=== PATIENT | male | born 1975 | race Caucasian/White ===

== ENCOUNTER 2017-07-27 07:52 | Inpatient (IN) | payer BC, OTHER ==
[~2017-07-27] VITALS: Ht 182.9 cm; Wt 99.8 kg
[2017-07-27] MEDS ORDERED: LORAZEPAM 1 MG TABLET PO PRN (17:45)
[2017-07-27] MEDS ORDERED: MIRALAX 17 GM POWD.PACK PO PRN (17:45)
[2017-07-27] MEDS ORDERED: MAG HYDROX/AL HYDROX/SIMETH 30 ML LIQUID UDC PO PRN (17:45)
[2017-07-27] MEDS ORDERED: LORAZEPAM 2 MG/1 ML VIAL IM PRN (17:45)
[2017-07-27] MEDS ORDERED: ONDANSETRON 4 MG/2 ML VIAL IM PRN (17:45)
[2017-07-27] MEDS ORDERED: LOPERAMIDE HCL 2 MG CAPSULE PO PRN ×2 (17:45)
[2017-07-27] MEDS ORDERED: CLONIDINE HCL 0.1 MG TABLET PO PRN (17:45)
[2017-07-27] MEDS ORDERED: DICYCLOMINE HCL 20 MG TABLET PO PRN (17:45)
[2017-07-27] MEDS ORDERED: MAGNESIUM HYDROXIDE 30 ML LIQUID UDC PO PRN (17:45)
[2017-07-27] MEDS ORDERED: ACETAMINOPHEN 325 MG TABLET PO PRN (17:45)
--- NOTE | 2017-07-27 18:00 | NUR ---
INTAKE ASSESSMENT Patient is a 41 year old male, seen at intake, AAOx4, admitted for ETOH dependence. Patient reported allergic to PCN per patient he gets hives as allergic reaction. Patient is ambulatory with steady gait. Vital signs taken and as follows: BP: 134/86, P: 91, RR: 17, O2: 95%, TEMP: 98.4, PAIN: 0. Discussed with patient the admission policies of the unit.Patient denies any history of seizure. Will continue with admission upon pt's arrival on the unit.
[2017-07-27 18:53] LABS: *AMPHETAMINE, URINE NEGATIVE (NEGATIVE); *BARBITURATE, URINE NEGATIVE (NEGATIVE); *CANNABINOID, URINE POSITIVE (NEGATIVE); *COCCAINE, URINE NEGATIVE (NEGATIVE); *OPIATE, URINE NEGATIVE (NEGATIVE); *PHENCYCLIDINE SCREEN,URINE NEGATIVE (NEGATIVE)
[2017-07-27 19:26] LABS: BASOPHILS # (AUTO) 0.1 K/uL (0.0-8.0); EOSINOPHILS % (AUTO) 0.3 % (0.0-7.0); HEMOGLOBIN 15.4 g/dL (12.5-16.3); LYMPHOCYTES # (AUTO) 2.6 K/uL (20.0-40.0); MONOCYTES # (AUTO) 0.5 K/uL (2.0-10.0); PLATELET COUNT (AUTO) 304 K/uL (152-348); WHITE BLOOD COUNT (AUTO) 7.1 K/uL (3.6-10.2)
[2017-07-27 19:35] LABS: BILIRUBIN,TOTAL 0.4 mg/dL (0.2-1.0); CREATININE 0.9 mg/dL (0.6-1.3); MAGNESIUM 1.7 mg/dL (1.8-2.4); POTASSIUM 3.2 mmol/L (3.5-5.1); TOTAL PROTEIN, SERUM 7.5 g/dL (6.4-8.2)
[2017-07-27 19:42] LABS: BASOPHILS % (AUTO) 1.2 % (0.0-2.0); HEMATOCRIT 43.6 % (36.7-47.1); LYMPHOCYTES % (AUTO) 36.9 % (20.5-51.5); MEAN CORPUSCULAR HEMOGLOBIN 34.4 uug (23.8-33.4); MEAN CORPUSCULAR HGB CONC 35 g/dL (32.5-36.3); MEAN CORPUSCULAR VOLUME 97.6 fL (73.0-96.2); MONOCYTES % (AUTO) 7.4 % (0.0-11.0); NEUTROPHILS # (AUTO) 3.9 K/uL (1.8-8.9); NEUTROPHILS % (AUTO) 54.2 % (38.5-71.5); RED BLOOD CELL COUNT(AUTO) 4.47 MIL/uL (4.06-5.63)
[2017-07-27 20:00] VITALS: BP 121/83
[2017-07-27] MEDS ORDERED: THIAMINE HCL 200 MG/2 ML VIAL IM ONE (20:00)
[2017-07-27] MEDS ORDERED: POTASSIUM CHLORIDE 20 MEQ TAB.PRT.SR PO ONE (20:00)
[2017-07-27] MEDS ORDERED: MAGNESIUM OXIDE 400 MG TABLET PO ONE (20:00)
[2017-07-27] MEDS: ONDANSETRON ODT 4 MG TAB.RAPDIS SL PRN (20:07)
--- NOTE | 2017-07-27 20:07 | NUR ---
PRN ATIVAN/ZOFRAN Pt noted with anxiety, agitation, and nausea. CIWA:8. PRN Ativan and Zofran administered as ordered. Safety measures in place. Will continue to monitor effectiveness.
--- NOTE | 2017-07-27 20:08 | NUR ---
POTASSIUM/MAGNESIUM Pt noted with potassium 3.2, and Magnesium 1.7. MD with new order for K-Dur 40 MeQ, and Mag-Ox 400 mg administered as ordered. Will continue to monitor.
--- NOTE | 2017-07-27 20:30 | NUR ---
ADMISSION NOTE CIWA:8 Pt arrived ambulatory from [facility] Intake to the third floor accompanied by a SHOT CORE DRILL OPERATOR HELPER at 1815. Pt is a 41 year old male admitted on 06/13/17 for ETOH dependency. Pt is full code with allergy to PCN. Pt reports PMHx of depression, bipolar and anxiety. He denies having a PCP but reports he only takes TUMS at home and used to take home medications of [place], Lamictal, Marplan, and Dextromethorphan. He reports that he has not taken these medications in over 1 year. He reports his longest sobriety was for 3 years in 2009. His last detox was in 2007 at [facility] in [place], [place]. He describes his current use as: 1. ETOH (whiskey) 1/2 gallon daily for 6 months at this rate. Last dose: " few drinks" on 07/27/17 2. Marijuana (smoke) intermittently. He describes his withdrawal symptoms as " anxiety, tremors, nausea and vomiting." Upon assessment, pt is alert and oriented x4. Speech is clear and audible. Pt noted to be anxious and restless. Heart rate regular. Denies chest pain or SOB. PERRLA, breathing is even and unlabored, lung sounds clear. Abdomen is soft and non-distended. Bowel sounds present in all quadrants, last BM 07/27/17. Pt reports that BM is regular. Pt's skin is warm, dry and intact. Pt was seen and examined by Dr. Rubin. Pt oriented to room and unit. Safety measures in place. Will continue to monitor.
[2017-07-27] MEDS ORDERED: NICOTINE POLACRILEX 4 MG GUM-PK OF TEN BC PRN (21:45)
[2017-07-27] MEDS ORDERED: NICOTINE 14 MG/24HR PATCH TD PRN (21:45)
[2017-07-27] MEDS ORDERED: CALC300T4 PO (22:48)
[2017-07-28] VITALS: BP 106/72
[2017-07-28] MEDS: LORAZEPAM 1 MG TABLET PO PRN (00:21)
[2017-07-28] MEDS: diphenhydrAMINE 50 MG CAPSULE PO PRN (00:21)
--- NOTE | 2017-07-28 00:21 | NUR ---
PRN ATIVAN, BENADRYL Pt noted with sweats, increased anxiety, restlessness and insomnia. CIWA:12. PRN Ativan and Benadryl administered as ordered. Safety measures in place. Will monitor effectiveness.
--- NOTE | 2017-07-28 01:21 | NUR ---
PRN REASSESSMENT PRN medications effective. Pt lying in bed with eyes closed noted to be asleep. Respirations 16, breathing even and unlabored. Safety measures in place. Will monitor.
[2017-07-28 04:00] VITALS: BP 110/83
--- NOTE | 2017-07-28 07:15 | NUR ---
END OF SHIFT Pt is a 41 year old male admitted on 06/13/17 for ETOH dependency. Pt is full code with allergy to PCN. He received PRN Zofran, Ativan x2, and Benadryl. He is scheduled to start his 5 day Ativan taper today 07/27/17. He slept a total of 8hrs, Intake:1328mL, Void:x1, BM:0, CIWA: 12. Pt remains alert and oriented x4, breathing is even and unlabored. Safety measures in place. Endorsed to AM shift.
--- NOTE | 2017-07-28 07:16 | NUR ---
Start of Shift Notes: Received endorsement from night nurse. Patient is a 41 year old male admitted for ETOH dependence who will be starting his 5-day Ativan taper as ordered. He is allergic to PCN. FULL CODE. Regular diet. On fall and seizure precautions. He is alert and verbally responsive. Oriented x 4. Respirations even and unlabored. No SOB noted. Skin warm and dry to touch. Abdomen soft and non-distended. BS (+) in all 4 quadrants. No complains of N/V/D or constipation noted. Voids independently. Educated patient on his current plan of care for the day and his medication regimen. Encouraged oral fluid intake and encouraged group participation to learn new skills to prevent relapse. Will continue to monitor throughout the day.
[2017-07-28 08:00] VITALS: BP_SYST 132; BP_SYST 141; BP_DIAS 81; BP_DIAS 91
[2017-07-28] MEDS ORDERED: TUBERCULIN,PURIF.PROT.DERIV. 5 TU/0.1 ML TEST ID ONE (09:00)
[2017-07-28] MEDS: FOLIC ACID 1 MG TABLET PO SCH (09:07)
[2017-07-28] MEDS: MULTIVITAMINS,THERAPEUTIC TABLET PO SCH (09:07)
[2017-07-28] MEDS: THIAMINE HCL 100 MG TABLET PO SCH (09:07)
[2017-07-28] MEDS: ONDANSETRON ODT 4 MG TAB.RAPDIS SL PRN (09:08)
[2017-07-28] MEDS: LORAZEPAM 1 MG TABLET PO SCH ×4 (09:08→20:20)
--- NOTE | 2017-07-28 09:08 | NUR ---
Clonidine 0.1mg PO/Zofran 4 mg ODT given: Patient noted with blood pressure of 141/91, Pulse 91 at rest. Noted with gross tremors, sweating and anxious with complains of intermittent nausea. CIWA 10. Medicated patient with Clonidine 0.1mg PO and Zofran 4 mg ODT as ordered. Will monitor for effectiveness. Addendum: 07/28/17 at 1016 by ARGENIS ORTIZ LVN Error in charting. Patient's CIWA was a 17 not 10.
--- NOTE | 2017-07-28 09:30 | NUR ---
MD Communication: CIWA score Notified Dr. Rubin regarding patient's CIWA score of 17. Per MD, he will evaluate the patient and to continue with current plan of care at this time.
[2017-07-28] MEDS ORDERED: PNEUMOCOCCAL 23-VAL P-SAC VAC 0.5 ML VIAL IM ONE (10:00)
[2017-07-28] MEDS ORDERED: INFLUENZA VACCINE 2017-2018 0.5 ML DISP.SYRIN IM ONE (10:00)
--- NOTE | 2017-07-28 10:08 | NUR ---
Re-assessment: Clonidine and Zofran Patient noted with BP 132/81, 1 hour after Clonidine administration. Patient reports that he no longer feels nauseated and is able to tolerate PO intake at this time. PRN Clonidine and Zofran were effective in reducing nausea and BP.
[2017-07-28] MEDS: LITHIUM CARBONATE 300 MG CAPSULE PO SCH ×2 (10:34→20:21)
[2017-07-28] MEDS: ESCITALOPRAM OXALATE 10 MG TABLET PO SCH (10:34)
[2017-07-28 12:00] VITALS: BP 133/77
[2017-07-28 16:00] VITALS: BP 133/82
--- NOTE | 2017-07-28 19:12 | NUR ---
End of Shift Notes: Patient initiated his 5-day Ativan taper today as ordered. Patient tolerated well. No adverse reactions noted. VS monitored closely. BP in AM was 141/91. Medicated patient with Clonidine 0.1 mg PO as ordered with help after 1 hour. Withdrawal symptoms were closely monitored. Initial CIWA 17, patient presented with anxiety, agitation, gross tremors, nausea, and sweats. Denies S/I or H/I noted. No AV hallucinations noted. Patient was seen by Dr. Land (psych) today with orders noted and carried out. Last CIWA 9. Per patient, Ativan has been effective in reducing his withdrawal symptoms. Unable to participate in group and activities due to his withdrawal symptoms. Compliant with care and treatment. PNA/FLU/TB test administered today. All needs met and attended. Will continue to monitor closely.
--- NOTE | 2017-07-28 19:15 | NUR ---
START OF SHIFT Received 41 year old male patient admitted on 07/27/17 for ETOH and Marijuana dependency. Pt is full code with allergy to PCN. He reports a PMHx of anxiety, depression and bipolar. He reports drinking ETOH (whiskey) 1/2 gallon daily for 6 months. Last dose was a " few drinks" on 07/27/17. He is currently receiving a 5 day Ativan taper and tolerating well. Per endorsement, pt received PNA and Flu vaccine today. He also received PRN Clonidine and Zofran. Pt is alert and oriented x4, breathing is even and unlabored. Safety measures in place. Will continue to monitor.
[2017-07-28 20:01] VITALS: BP 130/83
[2017-07-28] MEDS: IBUPROFEN 400 MG TABLET PO PRN (20:21)
--- NOTE | 2017-07-28 20:21 | NUR ---
PRN MOTRIN Pt complains of back pain 11/10. PRN Motrin administered as ordered. Safety measures in place. Will continue to monitor.
--- NOTE | 2017-07-28 20:54 | NUR ---
PRN NICOTINE GUM Pt requesting nicotine gum. Educated patient on " chew and park" method of using gum. Pt verbalized understanding. Will continue to monitor.
--- NOTE | 2017-07-28 21:21 | NUR ---
PRN MOTRIN REASSESSMENT PRN medication effective. Pt reports decrease of back pain to 3/10. Will continue to monitor.
--- NOTE | 2017-07-28 21:54 | NUR ---
PRN REASSESSMENT Nicotine gum effective. Pt able to report decrease sense of cravings. Pt lying in bed watching TV. Safety measures in place. Will continue to monitor.
[2017-07-29] VITALS: BP 124/85
--- NOTE | 2017-07-29 00:13 | NUR ---
PRN ATIVAN/BENADRYL Pt complains of anxiety, agitation, diaphoresis, and insomnia. CIWA:13. PRN Ativan 2 mg and Benadryl administered as ordered. Safety measures in place. Will monitor effectiveness.
[2017-07-29] MEDS: LORAZEPAM 1 MG TABLET PO PRN (00:21)
[2017-07-29] MEDS: diphenhydrAMINE 50 MG CAPSULE PO PRN (00:21)
--- NOTE | 2017-07-29 01:13 | NUR ---
PRN REASSESSMENT PRN medications effective. Pt is lying in bed with eyes closed noted to be asleep. Breathing is even and unlabored, safety measures in place. Will continue to monitor.
[2017-07-29 04:00] VITALS: BP 115/80
--- NOTE | 2017-07-29 07:06 | NUR ---
END OF SHIFT Pt is in bed sleeping but is easily aroused to verbal stimuli. He continues on a 5 day Ativan taper and tolerating well. He received PRN Nicotine gum, and Motrin. At 0013 pt complained of diaphoresis, anxiety, agitation, insomnia and restlessness. He received PRN Ativan and Benadryl. He slept a total of 8 hrs, Intake: 1,000mL, Void: x2, BM:0, CIWA:13. Safety measures in place. Endorsed to AM shift.
[2017-07-29 08:00] VITALS: BP 134/85
[2017-07-29] MEDS: FOLIC ACID 1 MG TABLET PO SCH (08:37)
[2017-07-29] MEDS: LORAZEPAM 1 MG TABLET PO SCH ×3 (08:37→21:59)
[2017-07-29] MEDS: MULTIVITAMINS,THERAPEUTIC TABLET PO SCH (08:37)
[2017-07-29] MEDS: LITHIUM CARBONATE 300 MG CAPSULE PO SCH ×2 (08:37→21:59)
[2017-07-29] MEDS: THIAMINE HCL 100 MG TABLET PO SCH (08:37)
[2017-07-29] MEDS: ESCITALOPRAM OXALATE 10 MG TABLET PO SCH (08:37)
[2017-07-29 12:00] VITALS: BP 121/69
[2017-07-29 13:07] LABS: HEPATITIS B SURFACE AG Negative (Negative)
[2017-07-29 16:00] VITALS: BP 128/84
--- NOTE | 2017-07-29 19:09 | NUR ---
End of Shift Notes: Patient initiated his 5-day Ativan taper today as ordered. Patient tolerated well. No adverse reactions noted. VS monitored closely. No significant abnormalities noted. Withdrawal symptoms were closely monitored. Initial CIWA 12, patient presented with anxiety, agitation, gross tremors and sweats. Denies S/I or H/I noted. No AV hallucinations noted. Last CIWA 8. Per patient, Ativan has been effective in reducing his withdrawal symptoms. Unable to participate in group and activities due to his withdrawal symptoms. Compliant with care and treatment. PNA/FLU/TB test administered today. All needs met and attended. Will continue to monitor closely. Addendum: 07/29/17 at 1916 by ARGENIS ORTIZ LVN Error in charting. PNA/TB/FLU vaccine administered yesterday 07/28/2017.
[2017-07-29 20:00] VITALS: BP 118/68
--- NOTE | 2017-07-29 20:00 | NUR ---
Start of Shift Patient is admitted for ETOH dependence. Placed on a 5-day Ativan taper, started on 07/28/2017. Pt verbalized that his withdrawal symptoms are being controlled by the medications. Pt also verbalized that his anxiety for the future and risk for relapse is alleviated by group therapy sessions. Pt noted with gross tremors and anxiety. Pt is AAOx4, is ambulatory with steady gait and with no skin issues. Fall, universal, seizure and safety prec in place. Call light within reach. Latest CIWA=7. Will continue to monitor.
[2017-07-30] VITALS: BP 120/65
[2017-07-30 04:00] VITALS: BP 128/77
--- NOTE | 2017-07-30 07:12 | NUR ---
End of Shift Patient is admitted for ETOH dependence. Placed on a 5-day Ativan taper, started on 07/28/2017. Pt verbalized that his withdrawal symptoms are being controlled by the medications. Pt also verbalized that his anxiety for the future and risk for relapse is alleviated by group therapy sessions. Pt noted with gross tremors and anxiety. Pt is AAOx4, is ambulatory with steady gait and with no skin issues. Fall, universal, seizure and safety prec in place. Call light within reach. Latest CIWA=5, slept for 6 hours. Endorsed to AM shift nurse for continuity of care.
--- NOTE | 2017-07-30 07:13 | NUR ---
Start of Shift Notes: Received endorsement from night nurse. Patient is a 41 year old male admitted for ETOH dependence placed on a 5-day Ativan taper as ordered. He is allergic to PCN. FULL CODE. Regular diet. On fall and seizure precautions. He is alert and verbally responsive. Oriented x 4. Respirations even and unlabored. No SOB noted. Skin warm and dry to touch. Abdomen soft and non-distended. BS (+) in all 4 quadrants. No complains of N/V/D or constipation noted. Voids independently. Educated patient on his current plan of care for the day and his medication regimen. Encouraged oral fluid intake and encouraged group participation to learn new skills to prevent relapse. Will continue to monitor throughout the day.
[2017-07-30 08:00] VITALS: BP 122/66
[2017-07-30] MEDS: ESCITALOPRAM OXALATE 10 MG TABLET PO SCH (08:23)
[2017-07-30] MEDS: FOLIC ACID 1 MG TABLET PO SCH (08:23)
[2017-07-30] MEDS: LORAZEPAM 1 MG TABLET PO SCH ×2 (08:23→12:07)
[2017-07-30] MEDS: THIAMINE HCL 100 MG TABLET PO SCH (08:23)
[2017-07-30] MEDS: LITHIUM CARBONATE 300 MG CAPSULE PO SCH ×4 (08:23→16:19)
[2017-07-30] MEDS: MULTIVITAMINS,THERAPEUTIC TABLET PO SCH (08:23)
[2017-07-30] MEDS: IBUPROFEN 400 MG TABLET PO PRN (08:32)
--- NOTE | 2017-07-30 08:32 | NUR ---
Motrin 400 mg PO given: Patient noted with complain of 5/10 back pain. Non-pharmacological interventions provided but ineffective. Medicated patient with Motrin 400 mg Po as ordered. Will monitor for effectiveness.
[2017-07-30] MEDS ORDERED: QUETIAPINE FUMARATE 25 MG TABLET PO PRN (09:00)
--- NOTE | 2017-07-30 09:14 | NUR ---
Psych MD: New Orders Seen and examined by Dr. Land with new orders. Patient's [place] increased to 300 mg TID from BID. AM dose of med was given at 0823. Per , ok to hold dose at 0900 from new orders and to start with current orders at 1300.
--- NOTE | 2017-07-30 09:32 | NUR ---
Re-assessment: Motrin Per patient, PRN Motrin was effective in reducing back pain. PL 07/13.
[2017-07-30 12:00] VITALS: BP 140/89
[2017-07-30] MEDS: GABAPENTIN 300 MG CAPSULE PO SCH ×2 (14:00→20:58)
[2017-07-30 16:00] VITALS: BP 128/87
[2017-07-30] MEDS ORDERED: LORAZEPAM 1 MG TABLET PO SCH ×2 (17:00→21:00)
--- NOTE | 2017-07-30 19:04 | NUR ---
End of Shift Notes: Patient initiated his 5-day Ativan taper today as ordered. Patient tolerated well. No adverse reactions noted. VS monitored closely. No significant abnormalities noted. Withdrawal symptoms were closely monitored. Initial CIWA 7, patient presented with anxiety, agitation, gross tremors and sweats. Denies S/I or H/I noted. No AV hallucinations noted. PRN Motrin 400 mg PO given at 0832 with help after 1 hour. Last CIWA 3. Per patient, Ativan has been effective in reducing his withdrawal symptoms. Unable to participate in group and activities due to his withdrawal symptoms. Compliant with care and treatment. All needs met and attended. Will continue to monitor closely. Addendum: 07/30/17 at 1905 by ARGENIS ORTIZ LVN Error in charting, Patient initiated his 5-day Ativan taper on 07/28/2017.
[2017-07-30 20:00] VITALS: BP 138/92
--- NOTE | 2017-07-30 20:00 | NUR ---
Start of Shift Notes Received 41 year old male px admitted on 07/27/2017 for ETOH dependence placed on a 5-day Ativan taper as ordered. He is allergic to PCN. FULL CODE. Regular diet. On fall and seizure precautions. He is alert and Oriented x 4. During the rounds at 2000, px reported moderate anxiety. Respirations are even and unlabored. No SOB noted. Encouraged oral fluid intake. Bed on low position, side rails up x2, and call light within reach. We'll continue to monitor.
[2017-07-30] MEDS: CLONIDINE HCL 0.1 MG TABLET PO SCH (20:58)
[2017-07-30] MEDS ORDERED: GABAPENTIN 300 MG CAPSULE PO SCH (21:00)
[2017-07-31] VITALS: BP 128/85
[2017-07-31 04:00] VITALS: BP 121/79
--- NOTE | 2017-07-31 04:00 | NUR ---
CIWA deferred CIWA deferred at 0000 and 0400 due to the px is asleep, to assess if the px is awake per doctor's order. We'll continue to monitor.
--- NOTE | 2017-07-31 07:17 | NUR ---
Start of Shift Notes Received 41 year old male px admitted on 07/27/2017 for ETOH dependence placed on a 5-day Ativan taper as ordered. He is allergic to PCN. FULL CODE. Regular diet. On fall and seizure precautions. He is alert and Oriented x 4. During the rounds at 1999, px reported moderate anxiety. Respirations are even and unlabored. No SOB noted. Oral intake of 1L, voided 4x, No BM. Slept for 6 hours. Last CIWA 3. Encouraged oral fluid intake. Bed on low position, side rails up x2, and call light within reach. We'll continue to monitor. Addendum: 07/31/17 at 0718 by KEVIN TAVAREZ RN This is End of Shift Notes
--- NOTE | 2017-07-31 07:32 | NUR ---
BEGINNING OF SHIFT Patient endorsement report received from car shifter nurse, all pertinent information discussed. Patient is a 41 year old male with admitting Dx: ETOH dependence. Patient under close observation. Patient currently with ongoing 5 day ativan taper as ordered, and is scheduled to begin day 4 of taper. will monitor ciwa and vital signs closely. patient received no PRNs during shift. patient slept for 6 hours, and last ciwa score of: 3. Patient received awake, alert and oriented x4, educated regarding plan of care for the day and medication regimen, with good verbal understanding. safety measures in place. call light kept with in reach. all needs met and rendered, call light kept with in reach, will continue to monitor closely.
[2017-07-31 08:03] VITALS: BP 122/86
[2017-07-31] MEDS ORDERED: LORAZEPAM 1 MG TABLET PO SCH ×3 (09:00→21:00)
[2017-07-31] MEDS: FOLIC ACID 1 MG TABLET PO SCH (09:05)
[2017-07-31] MEDS: THIAMINE HCL 100 MG TABLET PO SCH (09:05)
[2017-07-31] MEDS: LITHIUM CARBONATE 300 MG CAPSULE PO SCH ×3 (09:05→16:40)
[2017-07-31] MEDS: GABAPENTIN 300 MG CAPSULE PO SCH ×3 (09:05→21:50)
[2017-07-31] MEDS: MULTIVITAMINS,THERAPEUTIC TABLET PO SCH (09:05)
[2017-07-31] MEDS: CLONIDINE HCL 0.1 MG TABLET PO SCH ×2 (09:06→21:51)
[2017-07-31] MEDS ORDERED: QUETIAPINE FUMARATE 25 MG TABLET PO PRN (09:15)
[2017-07-31] MEDS: QUETIAPINE FUMARATE 25 MG TABLET PO SCH ×3 (10:02→16:40)
[2017-07-31 13:54] VITALS: BP 133/81
[2017-07-31 17:51] VITALS: BP 134/85
--- NOTE | 2017-07-31 18:52 | NUR ---
END OF SHIFT Patient alert and oriented x4, vital signs were WNL during shift. Patient is compliant with therapeutic plan of care. Patient with admitting Dx: etoh dependence and continues on a 5 day ativan taper as ordered, currently on day 4 of taper. During shift patient presented with: anxiety and tremors that can be felt but not seen. Detox medication effective at reducing withdrawal symptoms. Received no PRN medications. 0900 CIWA: 3; 1300 CIWA: 3; 1700 CIWA: 2. Encouraged adequate PO fluid intake as tolerated. Encouraged patient to attend group therapies/sessions to learn new coping skills to prevent relapse, noted attending and participating, denies SI/HI. Noted with good appetite during shift. Safety measures in place, call light kept with in reach. Fall precautions observed at all times. Will continue to monitor. Patient endorsed to maintenance mechanic 2nd shift nurse, all pertinent information discussed.
[2017-07-31 20:00] VITALS: BP 117/70
[2017-08-01] VITALS: BP 108/68
[2017-08-01 04:00] VITALS: BP 105/68
--- NOTE | 2017-08-01 07:22 | NUR ---
End of Shift Notes 41 year old male px admitted on 07/27/2017 for ETOH dependence placed on a 5-day Ativan taper as ordered. He is allergic to PCN. FULL CODE. Regular diet. On fall and seizure precautions. He is alert and Oriented x 4. During the shift, px reported moderate anxiety. Respirations are even and unlabored. No SOB noted. Encouraged oral fluid intake. Oral intake of 1,200 ml, voided 2x, No BM. Slept for 8 hours. Bed on low position, side rails up x2, and call light within reach. We'll continue to monitor.
--- NOTE | 2017-08-01 07:30 | NUR ---
start of shift note: received pt from shiftman nurse, pt is in stable condition at this time, pt is in bed sleeping, pt is [facility]oh withdrawal/dependence. pt slept 8 hrs with a last ciwa of 2, will continue to monitor pt for any changes and continue to meet pts needs
[2017-08-01 09:00] VITALS: BP 128/84
[2017-08-01] MEDS: LORAZEPAM 1 MG TABLET PO SCH ×2 (09:32→20:30)
[2017-08-01] MEDS: MULTIVITAMINS,THERAPEUTIC TABLET PO SCH (09:33)
[2017-08-01] MEDS: QUETIAPINE FUMARATE 25 MG TABLET PO SCH ×2 (09:33→13:30)
[2017-08-01] MEDS: THIAMINE HCL 100 MG TABLET PO SCH (09:33)
[2017-08-01] MEDS: LITHIUM CARBONATE 300 MG CAPSULE PO SCH ×3 (09:33→17:08)
[2017-08-01] MEDS: FOLIC ACID 1 MG TABLET PO SCH (09:33)
[2017-08-01] MEDS: CLONIDINE HCL 0.1 MG TABLET PO SCH ×2 (09:33→20:30)
[2017-08-01] MEDS: GABAPENTIN 300 MG CAPSULE PO SCH ×3 (09:33→20:30)
[2017-08-01 13:00] VITALS: BP 131/84
[2017-08-01] MEDS ORDERED: QUETIAPINE FUMARATE 25 MG TABLET PO SCH (17:00)
[2017-08-01 17:18] VITALS: BP 123/82
--- NOTE | 2017-08-01 18:43 | NUR ---
START OF SHIFT NOTE: Patient is a 41 year old male admitted to [facility] on 07/27/2017 for medically supervised withdrawal from Alcohol and Marijuana., continue 5 Day Ativan Taper which tolerated well without ASE. Patient reports Allergy to PCN, is on Full Code, Regular diet, is on Fall and Seizures precautions. Patient denies a history of withdrawal-induced seizures. PMH: Anxiety, Depression, Bipolar Disorder. Patient is alert and oriented x4. Speech is clear and soft. CIWA 7: patient c/o anxiety, agitation, nervousness, restlessness, sweating, and nasal stuffiness. VSWNL. Patient denies SI/HI. Respirations unlabored and even. Skin is intact, warm and dry to touch. Encouraged to attend groups activities. All needs met. Safety measures on place. Call light within reach, bed in lowest position and locked, padded rails up bilaterally. Patient endorsed by day shift nurse. Report received.
--- NOTE | 2017-08-01 18:43 | NUR ---
end of shift note: pt is in stable condition no s/s of pain or discomfort, pt's seroquel was adjusted, per pt's request. pt tolerated taper medications well, pt is being medically detoxing from etoh, pt verbalized he feels great. pt attended all groups and activities throughout the shift. pt's last ciwa is 4 will endorse pt to shift production associate nurse.
[2017-08-01 20:00] VITALS: BP 116/78
[2017-08-01] MEDS: diphenhydrAMINE 50 MG CAPSULE PO PRN (20:39)
--- NOTE | 2017-08-01 20:39 | NUR ---
PRN BENADRYL 50 MG 1 CAP PO ADMINISTRATION Patient c/o insomnia. PRN Benadryl 50 mg 1 capsule PO for insomnia administrated with full glass of water as ordered. Patient tolerated well. All needs met. Safety measures on place. Call light within reach, bed in lowest position and locked, padded rails up bilaterally rails up bilaterally. Will continue to monitor closely
--- NOTE | 2017-08-01 21:39 | NUR ---
RE-ASSESSMENT Patient is sleeping. Respirations even and unlabored. RR 16. PRN Benadryl 50 mg 1 capsule PO administrated for insomnia @2038 was effective. All needs met. Safety measures on place. Call light within reach, bed in lowest position and lock, padded rails up bilaterally rails up bilaterally. Will continue to monitor closely.
[2017-08-02] VITALS: BP 122/75
[2017-08-02 04:00] VITALS: BP 112/76
--- NOTE | 2017-08-02 06:36 | NUR ---
END OF SHIFT NOTE: Endorsed patient is a 41 year old male admitted to [facility] on 07/27/2017 for medically supervised withdrawal from Alcohol and Marijuana, continue 5 Day Ativan Taper which tolerated well without ASE. Patient reports Allergy to PCN, is on Full Code, Regular diet, is on Fall and Seizures precautions. Patient denies a history of withdrawal-induced seizures. PMH: Anxiety, Depression, Bipolar Disorder. Patient is alert and oriented x4. Last CIWA 3 @0400. Patient presented with anxiety, agitation, nervousness, restlessness, barely sweating, tremors, that can be felt, and nasal stuffiness. CIWA taken when patient's awake during night. Last VS @0400: T: 98.1, BP: 112/76, HR: 78, RR:17, RA O2Sat: 99%, pain level: "0/10". Patient denies SI/HI. Respirations unlabored and even. Skin is intact, warm and dry to touch. PRN Benadryl 50 mg 1 capsule PO administrated for insomnia @2038 was effective. Patient slept 9 hours, intake 2,000 ml, voided x4. Encouraged fluids intake as tolerated. Encouraged to attend groups activities. Safety measures in place: Call Light in reach, bed low, and locked, padded side rails up bilaterally. Needs attended. Patient endorsed to day shift nurse, report given. Addendum: 08/02/17 at 0703 by SHAI DICKERSON RN [place] level is 0.39 mmol/L - Low
[2017-08-02 08:00] VITALS: BP 122/86
[2017-08-02] MEDS ORDERED: LORAZEPAM 1 MG TABLET PO SCH (09:00)
[2017-08-02] MEDS: GABAPENTIN 300 MG CAPSULE PO SCH ×3 (09:04→20:46)
[2017-08-02] MEDS: CLONIDINE HCL 0.1 MG TABLET PO SCH ×2 (09:04→20:46)
[2017-08-02] MEDS: QUETIAPINE FUMARATE 25 MG TABLET PO SCH ×2 (09:05→20:46)
[2017-08-02] MEDS: MULTIVITAMINS,THERAPEUTIC TABLET PO SCH (09:05)
[2017-08-02] MEDS: THIAMINE HCL 100 MG TABLET PO SCH (09:05)
[2017-08-02] MEDS: LITHIUM CARBONATE 300 MG CAPSULE PO SCH ×3 (09:05→17:17)
[2017-08-02] MEDS: FOLIC ACID 1 MG TABLET PO SCH (09:06)
[2017-08-02] MEDS ORDERED: CLONIDINE HCL 0.1 MG TABLET PO SCH (10:15)
[2017-08-02] MEDS ORDERED: HYDROXYZINE PAMOATE 25 MG CAPSULE PO SCH (10:15)
[2017-08-02 12:00] VITALS: BP 135/97
--- NOTE | 2017-08-02 13:49 | NUR ---
at 10 15 am acknowledgement of d/c of clonodine and hydroxzine came up as d/c . then at 1300 it was noted too be given, text place to dr. ng if he wanted these 2 drugs to be given as clonidine was given 0904 am and showed as q 12 hours on pyxis , charge nurse aware and vistaril will be given as ordered , pt down stairs smoking
[2017-08-02] MEDS ORDERED: HYDROXYZINE PAMOATE 25 MG CAPSULE PO ONE (14:30)
[2017-08-02 16:00] VITALS: BP 134/90
--- NOTE | 2017-08-02 18:53 | NUR ---
patient a little anxious about leaving tommorrow and went smoking a lot no tremors a or sweating noted oral intake qs continue to monitor behavior.
--- NOTE | 2017-08-02 19:00 | NUR ---
Start of Shift Patient Received. Patient is in his room, awake, alert and verbally responsive. Breathing even and non labored. Patient is set for discharge tomorrow 08/02/17 to [facility]. Patient is able to verbalize some anxiety related to discharge but verbalizes I know this is the best thing for me despite the stress it brings regarding work. Allowed patient to verbalize feelings and offered support. Per endorsement, patient completed a 5 day modified Ativan taper. PRN Vistaril received for increased anxiety with medication noted to be effective. Last noted CIWA 4. Patient noted to be compliant with group and social meetings. Patient tolerated medications and plan of care well. All needs attended to promptly. Will continue plan of care as ordered.
[2017-08-02] MEDS ORDERED: DIPH50CA37 PO (19:31)
[2017-08-02] MEDS ORDERED: GABA-534 PO ×2 (19:31)
[2017-08-02] MEDS ORDERED: QUET25TA PO (19:31)
[2017-08-02] MEDS ORDERED: CLON0.1T14 PO (19:31)
[2017-08-02] MEDS ORDERED: LITH300C4 PO (19:31)
[2017-08-02 20:42] VITALS: BP 120/87
--- NOTE | 2017-08-02 20:53 | NUR ---
PRN Medication Administration Patient is able to verbalize increased feelings of constipation. Patient states "I had a small bowel movement earlier but I still feel like I need to go." PRN MOM administered as per orders. Will continue to monitor.
[2017-08-03 00:08] VITALS: BP 111/69
[2017-08-03 04:04] VITALS: BP 114/75
--- NOTE | 2017-08-03 07:05 | NUR ---
End of Shift Patient is in bed sleeping but easily aroused to verbal stimuli. Breathing even and non labored. Patient completed a modified Ativan taper and is set for discharge today 08/03/17to [facility]. Patient verbalized increased feelings of constipation and received PRN MOM. Will endorse to morning shift to follow up. Patients last noted CIWA 3. All needs attended to promptly. Will endorse to continue plan of care as ordered.
--- NOTE | 2017-08-03 07:30 | NUR ---
START OF SHIFT NOTE: RECEIVED PT FROM SUPERVISOR QUALITY CONTROL NURSE, PT IS IN STABLE CONDITION NO S/S OF PAIN OR DISCOMFORT. PT IS ADMITTED TO [facility] FOR ETOH WITHDRAWAL/DEPENDENCE. PT IS SET TO DISCHARGE TODAY, WILL ASSIST PT IN DISCHARGING AND WILL CONTINUE TO MONITOR PT FOR ANY CHANGES
[2017-08-03] MEDS: CLONIDINE HCL 0.1 MG TABLET PO SCH (08:16)
[2017-08-03] MEDS: THIAMINE HCL 100 MG TABLET PO SCH (08:16)
[2017-08-03] MEDS: QUETIAPINE FUMARATE 25 MG TABLET PO SCH (08:16)
[2017-08-03] MEDS: GABAPENTIN 300 MG CAPSULE PO SCH (08:17)
[2017-08-03] MEDS: FOLIC ACID 1 MG TABLET PO SCH (08:17)
[2017-08-03] MEDS: LITHIUM CARBONATE 300 MG CAPSULE PO SCH (08:17)
[2017-08-03] MEDS: MULTIVITAMINS,THERAPEUTIC TABLET PO SCH (08:17)
[2017-08-03 09:00] VITALS: BP 144/99
--- NOTE | 2017-08-03 09:27 | NUR ---
discharge note: pt left the unit in stable condition no s/s of pain or discomfort, pt was mildly anxious to discharge. pt teaching was administered and pt verbalized understanding, pt will be transferred to treatment via private car.
== END 2017-08-03 09:27 | disposition other institution (70) | DRG 895 ==
LOC: SRC 17:38
PROVIDERS: ADMIT Internal Medicine; ATTEND Internal Medicine
PROC: HZ2ZZZZ Detoxification Services for Substance Abuse Treatment (ICD-10-PCS; principal; 2017-07-27)
PROC: HZ41ZZZ Group Counseling for Substance Abuse Treatment, Behavioral (ICD-10-PCS; 2017-07-29)
DX: F10.232 Alcohol dependence with withdrawal with perceptual disturbance (principal); E83.42 Hypomagnesemia; I15.9 Secondary hypertension, unspecified; E87.1 Hypo-osmolality and hyponatremia; E86.9 Volume depletion, unspecified; F17.210 Nicotine dependence, cigarettes, uncomplicated; Y90.9 Presence of alcohol in blood, level not specified; G89.29 Other chronic pain; Z91.14 Patient's other noncompliance with medication regimen; Z81.8 Family history of other mental and behavioral disorders; Z88.0 Allergy status to penicillin; M54.40 Lumbago with sciatica, unspecified side; E87.6 Hypokalemia; Z82.3 Family history of stroke; Z81.1 Family history of alcohol abuse and dependence; Z80.9 Family history of malignant neoplasm, unspecified; F12.10 Cannabis abuse, uncomplicated
CPT/HCPCS: 36415; 70030-TC; 80307; 80349; 83735; 85025; 86580; 86592; 86705; 86803; 87340; 87806; 90686; 90732; A4663; G0480; J3411; Q0162; Q0163